=== PATIENT | female | born 1970 | race Caucasian/White ===

== ENCOUNTER 2017-06-19 08:06 | Emergency (ER) | payer OTHER ==
[2017-06-19 08:15] VITALS: RESP 16; TEMP 97.9; O2SAT 96
[2017-06-19] MEDS ORDERED: KETOROLAC 30 MG/1 ML SDV IVP ONE (08:53)
[2017-06-19] MEDS ORDERED: NS 1,000 ML IV ONE ×2 (08:53)
--- NOTE | 2017-06-19 08:56 | EDPHY ---
H & P Time Seen by Provider: 06/19/17 08:36 HPI/ROS: CHIEF COMPLAINT: Left flank pain HISTORY OF PRESENT ILLNESS: Has a history of kidney stones diagnosed [address] scan at [facility], did not have to have a procedure to have them removed. [place] like she had some "different urination" last week and then this past Sunday when a bike ride and started having intermittent left flank pain. Yesterday she woke up with left flank pain had some urinary frequency and dysuria. She was seen at urgent care with a told her she had blood in her urine but no bacteria was started on Cipro. A 2:00 p.m. she went home and has had left flank pain all night and this morning was worse she comes for evaluation. Does not radiate. Urinary symptoms persist. Symptoms are moderate to severe, worse with movement. REVIEW OF SYSTEMS: Eye: no change in vision ENT: no sore throat Cardiac: no chest pain or syncope Pulmonary: no cough or SOB Abdomen: No vomiting or diarrhea Musculoskeletal: Left flank pain as above, no trauma Skin: no rash Neuro: no headache Constitutional: no fever : HPI A comprehensive 10 point review of systems is otherwise negative aside from elements mentioned in the history of present illness. PAST MEDICAL HISTORY: Renal colic, asthma Social history: Was living in [place], moved to [place] with no current PCP. General Appearance: Alert and conversant, cooperative. Eyes: No scleral icterus. ENT, Mouth: Normal mucous membranes. Respiratory: Normal respiratory effort, breath sounds equal, lungs are clear to auscultation. Cardiovascular: Regular rate and rhythm. Gastrointestinal: Abdomen is soft and non tender. No focal tenderness or rebound or guarding. Neurological: Alert and oriented x3. Normally conversant. Face symmetric, normal movement and sensation in all extremities. Ambulatory. Skin: Warm and dry, no rashes. No zoster. Musculoskeletal: Left CVA tenderness, mild Psychiatric: Not agitated. Emergency Department course/MDM: Toradol 15 mg IV and normal saline. Ultrasound to evaluate for hydronephrosis, attempting to limit ionizing radiation. Chemistry and test. Urinalysis. 1020: Results discussed. Patient would prefer not to have CT scanning. Differential includes muscular back pain as well as small nonobstructing stone. Urine is normal but possibly had a UTI and now has a normal urine because she is currently on antibiotics. Would advise Cipro for a week as she has tolerated it before and currently tolerating it, black box warnings discussed. Smoking Status: Never smoked Constitutional: Initial Vital Signs Temperature (C) 36.6 C 06/19/17 08:08 Heart Rate 80 06/19/17 08:08 Respiratory Rate 16 06/19/17 08:08 Blood Pressure 112/76 06/19/17 08:08 O2 Sat (%) 96 06/19/17 08:08 O2 Delivery Mode Room Air Allergies/Adverse Reactions: No Known Allergies Allergy (Unverified 06/19/17 08:12) Home Medications: Medication Instructions Recorded Albuterol 5 mg/ml INH 06/19/17 Junel 1 mg-20 Mcg Tablet 06/19/17 Lexapro 06/19/17 oxyCODONE/APAP 5/325 [Percocet] 1 - 2 tab PO Q4-6PRN PRN #7 tab 06/19/17 Medical Decision Making - Diagnostics Imaging Results: Imaging Impressions Abdomen/Pelvis Ultrasound 06/19/17 08:54 Impression: Normal renal ultrasound. Findings discussed with GRACIE CACERES 06/19/2017 at 9:36. Differential Diagnosis: Differential considered for flank pain including but not limited to pinched nerve, spinal cord problem, renal colic, musculoskeletal, UTI or pyelonephritis. - Data Points Laboratory Results: Laboratory Results 06/19/17 08:45 06/19/17 08:45 06/19/17 06/19/17 06/19/17 09:20 08:45 08:45 WBC RBC Hgb Hct MCV MCH MCHC RDW Plt Count MPV Neut % (Auto) Lymph % (Auto) [place] % (Auto) Eos % (Auto) Baso % (Auto) Nucleat RBC Rel Count Absolute Neuts (auto) Absolute Lymphs (auto) Absolute Monos (auto) Absolute Eos (auto) Absolute Basos (auto) Absolute Nucleated RBC Immature Gran % Immature Gran # Sodium 141 mEq/L mEq/L (134-144) Potassium 3.9 mEq/L mEq/L (3.5-5.2) Chloride 110 mEq/L mEq/L (97-110) Carbon Dioxide 20 mEq/l L mEq/l (22-31) Anion Gap 11 mEq/L mEq/L (8-16) BUN 9 mg/dL mg/dL (7-23) Creatinine 0.7 mg/dL mg/dL (0.6-1.0) Estimated GFR > 60 Glucose 80 mg/dL mg/dL (70-100) Calcium 9.0 mg/dL mg/dL (8.5-10.4) Beta HCG, Qual NEGATIVE Urine Color PALE YELLOW Urine Appearance CLEAR Urine pH 6.0 (5.0-7.5) Ur Specific [place] 1.002 (1.002-1.030) Urine Protein NEGATIVE (NEGATIVE) Urine Ketones NEGATIVE (NEGATIVE) Urine Blood 1+ H (NEGATIVE) Urine Nitrate NEGATIVE (NEGATIVE) Urine Bilirubin NEGATIVE (NEGATIVE) Urine Urobilinogen NEGATIVE EU EU (0.2-1.0) Ur Leukocyte Esterase NEGATIVE (NEGATIVE) Urine RBC 1-3 /hpf /hpf (0-3) Urine WBC NONE SEEN /hpf /hpf (0-3) Ur Epithelial Cells TRACE /lpf /lpf (NONE-1+) Urine Glucose NEGATIVE (NEGATIVE) 06/19/17 08:45 WBC 6.34 10^3/uL 10^3/uL (3.80-9.50) RBC 4.12 10^6/uL L 10^6/uL (4.18-5.33) Hgb 13.3 g/dL g/dL (12.6-16.3) Hct 39.9 % % (38.0-47.0) MCV 96.8 fL fL (81.5-99.8) MCH 32.3 pg pg (27.9-34.1) MCHC 33.3 g/dL g/dL (32.4-36.7) RDW 11.4 % L % (11.5-15.2) Plt Count 217 10^3/uL 10^3/uL (150-400) MPV 10.6 fL fL (8.7-11.7) Neut % (Auto) 62.3 % % (39.3-74.2) Lymph % (Auto) 24.8 % % (15.0-45.0) [place] % (Auto) 7.1 % % (4.5-13.0) Eos % (Auto) 4.6 % % (0.6-7.6) Baso % (Auto) 0.9 % % (0.3-1.7) Nucleat RBC Rel Count 0.0 % % (0.0-0.2) Absolute Neuts (auto) 3.95 10^3/uL 10^3/uL (1.70-6.50) Absolute Lymphs (auto) 1.57 10^3/uL 10^3/uL (1.00-3.00) Absolute Monos (auto) 0.45 10^3/uL 10^3/uL (0.30-0.80) Absolute Eos (auto) 0.29 10^3/uL 10^3/uL (0.03-0.40) Absolute Basos (auto) 0.06 10^3/uL 10^3/uL (0.02-0.10) Absolute Nucleated RBC 0.00 10^3/uL 10^3/uL (0-0.01) Immature Gran % 0.3 % % (0.0-1.1) Immature Gran # 0.02 10^3/uL 10^3/uL (0.00-0.10) Sodium Potassium Chloride Carbon Dioxide Anion Gap BUN Creatinine Estimated GFR Glucose Calcium Beta HCG, Qual Urine Color Urine Appearance Urine pH Ur Specific [place] Urine Protein Urine Ketones Urine Blood Urine Nitrate Urine Bilirubin Urine Urobilinogen Ur Leukocyte Esterase Urine RBC Urine WBC Ur Epithelial Cells Urine Glucose Medications Given: Discontinued Medications Sodium Chloride (Ns) 1,000 mls @ 0 mls/hr IV EDNOW ONE; Wide Open PRN Reason: Protocol Stop: 06/19/17 08:54 Last Admin: 06/19/17 09:08 Dose: 1,000 mls Sodium Chloride (Ns) 1,000 mls @ 0 mls/hr IV EDNOW ONE; Wide Open PRN Reason: Protocol Stop: 06/19/17 08:54 Last Admin: 06/19/17 09:08 Dose: 1,000 mls Ketorolac Tromethamine (Toradol) 15 mg IVP EDNOW ONE Stop: 06/19/17 08:54 Last Admin: 06/19/17 09:07 Dose: 15 mg Departure - Departure Disposition: Home, Routine, Self-Care Clinical Impression: Flank pain Condition: Good Instructions: Flank Pain (ED) Additional Instructions: Urine culture sent call the ED in 2 days for results Referrals: Tobi Phillips MD [Medical Doctor] - As per Instructions Rima Cordero MD [Medical Doctor] - As per Instructions (maxillofacial surgeon primary care physician) Prescriptions: oxyCODONE/APAP 5/325 [Percocet] 1 - 2 tab PO Q4-6PRN PRN #7 tab PRN Reason: Pain
[2017-06-19 09:00] LABS: % IMMATURE GRANULYOCYTES 0.3 % (0.0-1.1); ABSOLUTE IMMATURE GRANULOCYTES 0.02 10^3/uL (0.00-0.10); ADD DIFF? NO; ADD MORPH? NO; ADD SCAN? NO; ATYPICAL LYMPHOCYTE FLAG 0 (0-99); FRAGMENT RBC FLAG 0 (0-99); HEMATOCRIT 39.9 % (38.0-47.0); HEMOGLOBIN 13.3 g/dL (12.6-16.3); LEFT SHIFT FLG 0 (0-99); LIPEMIA HEMOLYSIS FLAG 80 (0-99); MEAN CELL HEMOGLOBIN 32.3 pg (27.9-34.1); MEAN CELL HEMOGLOBIN CONCENTR. 33.3 g/dL (32.4-36.7); MEAN CELL VOLUME 96.8 fL (81.5-99.8); MEAN PLATELET VOLUME 10.6 fL (8.7-11.7); PLATELET CLUMPS FLAG 10 (0-99); PLATELET COUNT 217 10^3/uL (150-400); RED BLOOD CELL COUNT 4.12 10^6/uL (4.18-5.33); RED CELL DISTRIBUTION WIDTH 11.4 % (11.5-15.2)
[2017-06-19 09:13] LABS: ANION GAP 11 mEq/L (8-16); CARBON DIOXIDE 20 mEq/l (22-31); CHLORIDE 110 mEq/L (97-110); CREATININE 0.7 mg/dL (0.6-1.0); GLOMERULAR FILTRATION RATE > 60; GLUCOSE 80 mg/dL (70-100); POTASSIUM 3.9 mEq/L (3.5-5.2); SODIUM 141 mEq/L (134-144)
[2017-06-19 09:30] LABS: COLOR PALE YELLOW; LEUKOCYTE ESTERASE,URINE NEGATIVE (NEGATIVE); NITRITE,URINE NEGATIVE (NEGATIVE)
[2017-06-19 09:34] LABS: WBC,URINE NONE SEEN /hpf (0-3)
[2017-06-19 10:43] VITALS: BP 104/66; PULSE 58
== END 2017-06-19 10:42 | disposition home or self-care (01) ==
DX: R10.9 Unspecified abdominal pain (principal); E86.9 Volume depletion, unspecified
CPT/HCPCS: 96374; J1885